=== PATIENT | male | born 1990 | race Caucasian/White ===

== ENCOUNTER 2018-09-22 10:16 | Emergency (ER) | payer BC ==
[~2018-09-22] VITALS: Ht 172.7 cm; Wt 90.7 kg
--- NOTE | 2018-09-22 11:15 | NUR ---
C/O LEFT LEG CELLULITIS x 2 WEEKS. HAS MULTIPLE SORES ON BLE, HX ECZEMA. HAS SOME PAIN, BUT MOSTLY ITCHING. NO ACUTE DISTRESS NOTED. NO OTHER COMPLAINTS AT THIS TIME. AOX4, AMB, VSS, RR EVEN AND UNLABORED. FRIEND AT BEDSIDE. MADE COMFORTABLE AND READY FOR EVAL.
[2018-09-22] MEDS ORDERED: methylPREDNISolone SOD SUCC 125 MG/2ML VIAL ONE (11:17)
[2018-09-22 11:18] LABS: BASOPHILS # (AUTO) 0.1 /CMM (0.0-0.2); BASOPHILS % (AUTO) 0.4 % (0.0-2.0); EOSINOPHILS % (AUTO) 7.1 % (0.0-6.0); HEMATOCRIT 50 % (39-51); LYMPHOCYTES # (AUTO) 4.5 /CMM (0.8-4.8); LYMPHOCYTES % (AUTO) 24.3 % (20.0-44.0); MEAN CORPUSCULAR HGB CONC 34 g/dl (31.0-36.0); MEAN CORPUSCULAR VOLUME 93 fL (80-96); MONOCYTES # (AUTO) 1.9 /CMM (0.1-1.30); MONOCYTES % (AUTO) 10.1 % (2.0-12.0); NEUTROPHILS # (AUTO) 10.8 /CMM (1.8-8.9); NEUTROPHILS % (AUTO) 58.1 % (43.0-81.0); PLATELET COUNT (AUTO) 264 /CMM (150-450); WHITE BLOOD COUNT (AUTO) 18.5 K/uL (4.3-11.0)
[2018-09-22 11:23] LABS: CALCIUM, SERUM 8.9 mg/dL (8.5-10.1); CREATININE 1.1 mg/dL (0.6-1.3); POTASSIUM 3.8 mmol/L (3.5-5.1)
[2018-09-22] MEDS ORDERED: methylPREDNISolone SOD SUCC 125 MG/2ML VIAL IV ONE (11:30)
[2018-09-22] MEDS ORDERED: IV NS 0.9% 1,000 ML BAG IV ONE (11:30)
[2018-09-22] MEDS ORDERED: VANCOMYCIN 1 GM in IV D5W 250 ML IV ONE (11:30)
[2018-09-22] MEDS ORDERED: DOXY100C2 PO (11:45)
--- NOTE | 2018-09-22 11:57 | NUR ---
CALLED FOR [facility] BED
--- NOTE | 2018-09-22 12:18 | NUR ---
PT RESTING COMFORTABLY IN BED. NO EVIDENCE OF ABX REACTION. WILL CONT TO MONITOR.
--- NOTE | 2018-09-22 13:09 | NUR ---
IVF COMPLETE. PT TOMASZ WELL. RESTING COMFORTABLY. WILL POSSIBLY BE TRANSFERRED
--- NOTE | 2018-09-22 13:12 | NUR ---
CALLED [facility] GROUP TESTER WAS PAGED.
--- NOTE | 2018-09-22 14:58 | NUR ---
Patient is resting comfortably in bed with eyes closed. Easily aroused. VSS
--- NOTE | 2018-09-22 15:30 | NUR ---
DR SMITH AT BEDSIDE
--- NOTE | 2018-09-22 16:05 | NUR ---
Patient discharged to home in stable condition. Written and verbal after care instructions given. Patient verbalizes understanding of instruction.IV removed. Catheter intact and site benign. Pressure and 4x4 applied to site. No bleeding noted.
[2018-09-22 16:08] VITALS: BP 124/82
== END 2018-09-22 16:09 | disposition home or self-care (01) ==
LOC: ER 10:18
DX: L03.116 Cellulitis of left lower limb (principal); L30.9 Dermatitis, unspecified; F10.10 Alcohol abuse, uncomplicated; F41.9 Anxiety disorder, unspecified; Y90.9 Presence of alcohol in blood, level not specified
CPT/HCPCS: 36415; 80048; 85025; 87081; 96365; 96375; 99285; J2930; J3370; J7030; J7060

== ENCOUNTER 2022-10-30 01:55 | Emergency (ER) | payer BC ==
[~2022-10-30] VITALS: Ht 165.1 cm; Wt 68.0 kg
[~2022-10-30 01:55] MED LIST: DOXY100C2 PO
[2022-10-30 02:00] VITALS: BP 148/72; TEMP 98; O2SAT 99
[2022-10-30] MEDS ORDERED: PRED20TA PO (02:10)
== END 2022-10-30 02:31 | disposition home or self-care (01) ==
LOC: ER 01:55
DX: R21 Rash and other nonspecific skin eruption (principal); F41.9 Anxiety disorder, unspecified; Z79.899 Other long term (current) drug therapy